=== PATIENT | male | born 1950 | race African-American/Black ===

== ENCOUNTER 2019-09-18 20:26 | Inpatient (IN) | payer MEDICARE, OTHER ==
[~2019-09-18] VITALS: Ht 170.2 cm; Wt 165.1 kg
[2019-09-18] MEDS ORDERED: METHYLPREDNISOLONE SOD SUCC 125 MG/2 ML VIAL IV STA (20:50)
[2019-09-18] MEDS ORDERED: IPRATROPIUM BROMIDE (0.02%) 0.5MG/2.5ML NEB HHN STA (20:50)
[2019-09-18] MEDS ORDERED: ALBUTEROL (0.083%) 2.5MG/3ML NEB HHN STA (20:50)
[2019-09-18 21:12] LABS: EOSINOPHILS % 8.2 % (0.0-5.0); HEMATOCRIT. 43.8 % (42.0-52.0); HEMOGLOBIN. 14.2 g/dL (14.0-18.0); LYMPHOCYTES % 14.4 % (20.0-50.0); MEAN CORPUSCULAR HEMOGLOBIN 28.3 pg (28.0-32.0); MEAN CORPUSCULAR VOLUME 87.1 fL (80.0-94.0); MEAN PLATELET VOLUME 8.7 fl (7.4-10.4); NEUTROPHILS % 68.4 % (40.0-76.0); PLATELET 209 x1000/uL (130-400); RED BLOOD CELL COUNT 5.03 mill/uL (4.7-6.1); RED CELL DISTRIBUTION WIDTH 13.5 % (11.6-14.6)
[2019-09-18 21:14] LABS: CHLORIDE 105 mEq/L (98-107)
[2019-09-18] MEDS ORDERED: CLONIDINE 0.2MG TABLET PO ONE (22:45)
[2019-09-18] MEDS ORDERED: HYDROCODONE/ACETAMINOPHEN 5/325MG TABLET PO PRN (23:15)
[2019-09-18] MEDS ORDERED: MAGNESIUM/ALUMINUM HYDROXIDE/SIMETHICONE 30ML UDC PO PRN (23:15)
[2019-09-18] MEDS ORDERED: ONDANSETRON HCL 4MG/2ML INJ IV PRN (23:15)
[2019-09-18] MEDS ORDERED: DOCUSATE SODIUM 100MG CAPSULE PO PRN (23:15)
[2019-09-18] MEDS ORDERED: GUAIFENESIN 200MG/10ML SUGAR FREE UDC PO PRN (23:15)
[2019-09-18] MEDS ORDERED: CLONIDINE 0.1MG TABLET PO PRN (23:15)
[2019-09-18] MEDS ORDERED: ENOXAPARIN 40MG/0.4ML SYR SUBCUT SCH (23:15)
[2019-09-18] MEDS ORDERED: ACETAMINOPHEN 325MG TABLET PO PRN (23:15)
[2019-09-19 01:00] VITALS: BP 150/91
[2019-09-19] MEDS ORDERED: CEFTRIAXONE 1 G PREMIX 50 ML IV SCH (01:00)
[2019-09-19] MEDS: METHYLPREDNISOLONE SOD SUCC 125 MG/2 ML VIAL IV SCH ×3 (01:43→13:26)
[2019-09-19] MEDS ORDERED: AZITHROMYCIN 500 MG in DEXT 5% WATER 250 ML IV SCH (02:00)
[2019-09-19 07:25] LABS: CHLORIDE 103 mEq/L (98-107)
[2019-09-19 07:28] LABS: HEMATOCRIT. 40.7 % (42.0-52.0); HEMOGLOBIN. 13.4 g/dL (14.0-18.0); MEAN CORPUSCULAR HEMOGLOBIN 28.7 pg (28.0-32.0); MEAN CORPUSCULAR VOLUME 86.9 fL (80.0-94.0); PLATELET 208 x1000/uL (130-400); RED BLOOD CELL COUNT 4.68 mill/uL (4.7-6.1); RED CELL DISTRIBUTION WIDTH 13.5 % (11.6-14.6)
[2019-09-19 08:00] VITALS: BP 158/111
[2019-09-19] MEDS ORDERED: LISINOPRIL 20MG TABLET PO SCH (09:00)
[2019-09-19] MEDS: AMLODIPINE 10MG TABLET PO SCH (09:55)
[2019-09-19] MEDS: ENOXAPARIN 40MG/0.4ML SYR SUBCUT SCH ×2 (09:56→21:45)
[2019-09-19 10:57] LABS: BG BASE EXCESS -0.9 mmol/L (-2.0-2.0); BG CARBOXYHEMOGLOBIN 0.3 % (0.5-1.5); BG DEOXYHEMOGLOBIN 7.1 % (0.0-5.0); BG FRACTION INSPIRED OXYGEN 21; BG HCO3 ACT 23.5 mmol/L (22.0-26.0); BG METHEMOGLOBIN 0.3 % (0.0-1.5); BG OXYGEN SATURATION 92.9 % (92.0-98.5); BG OXYHEMOGLOBIN 92.3 % (94.0-97.0); BG PCO2 38.1 mmHg (35.0-45.0); BG PH 7.408 (7.350-7.450); BG PO2 61.1 mmHg (75.0-100.0); BG SAMPLE SITE LEFT RADIAL; BG TOTAL HEMOGLOBIN 13.1 g/dL (12.0-18.0); BG VENT MODE ROOM AIR
[2019-09-19 11:01] LABS: PLATELET ESTIMATE NORMAL
[2019-09-19] MEDS ORDERED: LIDOCAINE HCL/PF 1% 2ML VIAL ONE (11:23)
[2019-09-19 12:00] VITALS: BP 143/86
[2019-09-19] MEDS ORDERED: DEXTROSE 50% WATER 50ML SYRINGE IV PRN ×2 (13:00)
[2019-09-19] MEDS: IPRATROPIUM/ALBUTEROL 0.5-3(2.5)MG/3ML NEB NEB PRN ×3 (13:20→21:01)
[2019-09-19] MEDS: HYDRALAZINE HCL 10MG TABLET PO SCH ×2 (13:23→21:46)
[2019-09-19] MEDS: INSULIN LISPRO 100 UNITS/ML SUBCUT SCH ×5 (13:28→22:25)
[2019-09-19 16:00] VITALS: BP 148/93
[2019-09-19] MEDS ORDERED: BLOOD SUGAR DIAGNOSTIC STRIP TEST SCH (16:45)
[2019-09-19] MEDS: BLOOD SUGAR DIAGNOSTIC STRIP TEST SCH ×2 (17:10→21:00)
[2019-09-19] MEDS: METHYLPREDNISOLONE SOD SUCC 40 MG/ML VIAL IV SCH (17:17)
[2019-09-19] MEDS: METFORMIN HCL 500MG TABLET PO SCH (17:18)
[2019-09-19] MEDS ORDERED: AZITHROMYCIN 250 MG TABLET PO SCH (18:00)
[2019-09-19 20:00] VITALS: BP 128/81
[2019-09-20] VITALS: BP 138/79
[2019-09-20] MEDS: METHYLPREDNISOLONE SOD SUCC 40 MG/ML VIAL IV SCH ×2 (00:36→06:29)
[2019-09-20] MEDS ORDERED: CEFTRIAXONE 1 G PREMIX 50 ML IV SCH (01:00)
[2019-09-20] MEDS: IPRATROPIUM/ALBUTEROL 0.5-3(2.5)MG/3ML NEB NEB PRN (02:00)
[2019-09-20 04:00] VITALS: BP 143/81
[2019-09-20] MEDS: HYDRALAZINE HCL 10MG TABLET PO SCH (06:29)
[2019-09-20] MEDS: BLOOD SUGAR DIAGNOSTIC STRIP TEST SCH ×2 (07:26→12:23)
[2019-09-20] MEDS: INSULIN LISPRO 100 UNITS/ML SUBCUT SCH ×4 (07:28→13:24)
[2019-09-20 08:00] VITALS: BP 162/95
[2019-09-20] MEDS: AMLODIPINE 10MG TABLET PO SCH (08:22)
[2019-09-20] MEDS: METFORMIN HCL 500MG TABLET PO SCH (08:22)
[2019-09-20] MEDS: ENOXAPARIN 40MG/0.4ML SYR SUBCUT SCH (08:22)
[2019-09-20] MEDS ORDERED: LISINOPRIL 40MG TABLET PO SCH (09:00)
[2019-09-20 11:47] VITALS: BP 144/94
[2019-09-20 12:00] VITALS: BP 144/94
[2019-09-21] MEDS ORDERED: CEFTRIAXONE 1,000 MG in DEXTROSE 5% WATER 50 ML IV SCH (01:00)
[2019-09-21] MEDS ORDERED: PREDNISONE 20MG TABLET PO SCH (09:00)
== END 2019-09-20 14:00 | disposition home health service (06) | DRG 189 ==
LOC: ER 20:26 → ENRESERV 23:30 → CANRESERV 23:30 → ENRESERV 23:49 → 5WST 09-19 00:29
PROVIDERS: ADMIT Hospitalist; ATTEND Hospitalist
DX: J96.01 Acute respiratory failure with hypoxia (principal); J44.1 Chronic obstructive pulmonary disease with (acute) exacerbation; J98.11 Atelectasis; Z68.43 Body mass index [BMI] 50.0-59.9, adult; I10 Essential (primary) hypertension; R60.0 Localized edema; E11.65 Type 2 diabetes mellitus with hyperglycemia; E66.01 Morbid (severe) obesity due to excess calories; G47.33 Obstructive sleep apnea (adult) (pediatric)
CPT/HCPCS: 36415; 36600; 71045; 80053; 82375; 82805; 82962; 83036; 83880; 84484; 85025; 93005; 94640; 99291; J0456; J0696; J1650; J1815; J2920; J2930; J3490; J7060